=== PATIENT | female | born 1970 | race Caucasian/White ===

== ENCOUNTER 2016-05-18 12:00 | Emergency (ER) | payer OTHER | END 2016-05-18 12:50 | disposition home or self-care (01) | LOC: ER 12:00 | DX: S20.211A Contusion of right front wall of thorax, initial encounter (principal); W19.XXXA Unspecified fall, initial encounter; Y92.019 Unspecified place in single-family (private) house as the place of occurrence of the external cause; Z90.49 Acquired absence of other specified parts of digestive tract; Z90.710 Acquired absence of both cervix and uterus; Z88.5 Allergy status to narcotic agent | CPT/HCPCS: 71020; 99283 ==

== ENCOUNTER 2016-09-03 16:52 | Observation (INO) | payer OTHER ==
[~2016-09-03] VITALS: Ht 172.7 cm; Wt 92.0 kg
[2016-09-03 17:18] LABS: BASO % 0.3 % (0.1-1.2); EOS % 0.2 % (0.7-5.8); GRAN # 3.6 10_X3_uL (1.6-6.1); GRAN % 58.4 % (34.0-71.1); HEMOGLOBIN 13.7 g/dL (11.2-15.7); LYMPH % 32.5 % (19.3-51.7); MEAN CORPUSCULAR HEMOGLOBIN 31.6 pg (27.0-33.0); MEAN CORPUSCULAR HGB CONC 34.3 g/dL (32.0-36.0); MEAN CORPUSCULAR VOLUME 92.2 fL (79-95); MEAN PLATELET VOLUME 10.6 fl (7.5-11.5); MONO # 0.5 10_X3_uL (0.2-0.9); MONO % 8.6 % (4.7-12.5); PLATELET COUNT 232 x10_3/uL (182-369); RED BLOOD COUNT 4.34 x10_6/uL (3.9-5.2); RED CELL DISTRIBUTION WIDTH 12.7 % (11.7-14.4); WHITE BLOOD COUNT 6.2 x10_3/uL (4.0-10.0)
[2016-09-03 17:27] LABS: BLOOD UREA NITROGEN 18 mg/dL (7-18); CALCIUM 9.1 mg/dL (8.7-10.7); CARBON DIOXIDE 27 mmol/L (21-32); CREATININE 0.7 mg/dL (0.6-1.3); GLUCOSE,RANDOM 96 mg/dL (70-99); POTASSIUM 3.8 mmol/L (3.5-5.1); SODIUM 141 mmol/L (136-145)
[2016-09-03 20:23] LABS: INR 1.1 (1.0-1.1); PARTIAL THROMBOPLASTIN TIME 25.4 SECONDS (21.8-28.4); PROTHROMBIN TIME (PATIENT) 10.9 SECONDS (9.6-10.8)
[2016-09-04 00:10] LABS: CKMB 2.7 ng/ml (0.0-5.0)
[2016-09-04 00:18] LABS: TROP-I < 0.30 NG/ML (0.00-0.30)
[2016-09-04 06:04] LABS: CKMB 2.2 ng/ml (0.0-5.0)
[2016-09-04 06:12] LABS: TROP-I < 0.30 NG/ML (0.00-0.30)
[2016-09-04 11:19] LABS: CKMB 2.2 ng/ml (0.0-5.0)
[2016-09-04 11:20] LABS: TROP-I < 0.30 NG/ML (0.00-0.30)
== END 2016-09-05 11:44 | disposition short-term general hospital (02) ==
LOC: ER 16:52 → MS 19:08
PROVIDERS: General Practice; ADMIT Family Medicine
DX: R07.89 Other chest pain (principal); R00.1 Bradycardia, unspecified; I49.9 Cardiac arrhythmia, unspecified; F41.9 Anxiety disorder, unspecified; J20.9 Acute bronchitis, unspecified; R06.00 Dyspnea, unspecified; R61 Generalized hyperhidrosis; M79.1 Myalgia; Z83.3 Family history of diabetes mellitus; Z80.9 Family history of malignant neoplasm, unspecified; Z82.49 Family history of ischemic heart disease and other diseases of the circulatory system; Z83.6 Family history of other diseases of the respiratory system; Z88.5 Allergy status to narcotic agent
CPT/HCPCS: 36415; 71020; 71250; 80048; 80061; 82550; 82553; 85025; 85379; 85610; 85730; 93005; 93041; 93306; 96372; 96374; 96376; 99070; 99285-25; G0378; J2930